=== PATIENT | female | born 1955 | race Caucasian/White ===

== ENCOUNTER 2020-04-30 17:03 | Emergency (ER) | payer OTHER, MEDICAID ==
[~2020-04-30] VITALS: Ht 177.8 cm; Wt 68.0 kg
[2020-04-30 17:05] VITALS: BP_SYST 140
[2020-04-30] MEDS ORDERED: HYDR-4272 PO (18:59)
[2020-04-30 19:05] VITALS: BP_SYST 140
== END 2020-04-30 19:05 | disposition home or self-care (01) ==
LOC: SED 17:03
DX: S62.521A Displaced fracture of distal phalanx of right thumb, initial encounter for closed fracture (principal)
CPT/HCPCS: 73140-TC; 99283

== ENCOUNTER 2020-08-16 14:29 | Emergency (ER) | payer OTHER, MEDICAID ==
[~2020-08-16] VITALS: Ht 177.8 cm; Wt 68.0 kg
[~2020-08-16 14:29] MED LIST: HYDR-4272 PO
--- NOTE | 2020-08-16 15:00 | NUR ---
Patient to ER bed 5 to gown for evaluation. Side rails up.
[2020-08-16 15:05] VITALS: BP_SYST 160
--- NOTE | 2020-08-16 15:05 | NUR ---
Pt came into ER wtih complaint of ear pain 2/10 caused by the back of her earing which is lodged in the ear X4days. The pt reports she is unable to remove it. Pt [id number] resting in rnje no distress noted.
--- NOTE | 2020-08-16 15:29 | NUR ---
ER at bedside examining patient.
[2020-08-16] MEDS ORDERED: LIDOCAINE 1% 10 MG/ML, 20 ML MDV INJ ONE (15:45)
--- NOTE | 2020-08-16 16:02 | NUR ---
Dr Lauren administered lidocaine and made a small incision to remove foreign body from right ear. Pt tolerated well.
[2020-08-16 16:08] VITALS: BP_SYST 160
--- NOTE | 2020-08-16 16:08 | NUR ---
Patient given written and verbal discharge instructions and verbalizes understanding. ER MD discussed with patient the results and treatment provided. Patient in stable condition. ID arm band removed. Patient educated on pain management and to follow up with PMD. Pain Scale 0/10. Opportunity for questions provided and answered. Medication side effect fact sheet provided.
== END 2020-08-16 16:08 | disposition home or self-care (01) ==
LOC: SED 14:29
DX: S01.341A Puncture wound with foreign body of right ear, initial encounter (principal); W49.04XA Ring or other jewelry causing external constriction, initial encounter; Y93.89 Activity, other specified; Y92.89 Other specified places as the place of occurrence of the external cause; Y99.8 Other external cause status
CPT/HCPCS: 10120; 99285; J2001